=== PATIENT | female | born 1960 | race Caucasian/White ===

== ENCOUNTER → 2021-04-28 | Outpatient (CLI) | payer BC | LOC: KOH-I 15:52 | DX: M25.531 Pain in right wrist (principal); M19.031 Primary osteoarthritis, right wrist | CPT/HCPCS: 73100 ==

== ENCOUNTER → 2022-02-25 | Outpatient (CLI) | payer BC | LOC: KOH-I 14:56 | DX: J45.991 Cough variant asthma (principal) | CPT/HCPCS: 71046 ==